=== PATIENT | male | born 1975 ===

== ENCOUNTER 2022-09-16 09:10 | Outpatient (CLI) | payer OTHER | END 2022-09-16 09:12 | disposition home or self-care (01) | LOC: SONOGRAMA 09:10 | PROVIDERS: ATTEND Pathology Anatomic Pathology & Clinical Pathology | DX: D34 Benign neoplasm of thyroid gland (principal); E06.5 Other chronic thyroiditis; E04.9 Nontoxic goiter, unspecified; E04.2 Nontoxic multinodular goiter ==